=== PATIENT | female | born 2000 | race Caucasian/White ===

== ENCOUNTER → 2019-08-29 11:19 | Outpatient (CLI) | payer MEDICAID ==
[~2019-08-29 11:19] MED LIST: AUGMENTIN 875-11 TAB PO; FLAGYL500 MG PO; HYDROCODON-ACE1 EA10 PO; IBUPROFEN600 MG PO; PRENAVITE1 TAB PO
[2019-09-22 05:49] VITALS: BMI 31.6
== END | disposition home or self-care (01) ==
LOC: D.LDO 11:19
PROVIDERS: ATTEND Obstetrics & Gynecology
DX: O24.419 Gestational diabetes mellitus in pregnancy, unspecified control (principal); Z3A.00 Weeks of gestation of pregnancy not specified

== ENCOUNTER 2019-09-21 12:00 | Inpatient (IN) | payer MEDICAID ==
[~2019-09-21] VITALS: Ht 154.9 cm; Wt 75.9 kg
[2019-09-22] VITALS (12 sets, daily range): BP systolic 104–128; BP diastolic 61–83; Ht 154.9 cm; Wt 75.9 kg
[2019-09-22 06:10] LABS: HEMATOCRIT 36.4 % (36.0-48.0); HEMOGLOBIN 11.8 g/dL (12-16); MCH 29.3 pg (26.0-34.0); MCHC 32.4 g/dL (31.0-37.0); MCV 90.3 fL (80.0-100.0); MEAN PLATELET VOLUME 9.8 fL (7.4-10.4); RBC 4.03 10x6/uL (4.00-5.40); RDW 13.3 % (11.5-14.5); WBC 10.8 10x3/uL (4.8-10.8)
--- NOTE | 2019-09-22 06:32 | NUR ---
DR DENTON NOTIFIED AND REVIEWED PT's BEHAVIOR AND ASSESSMENT RESULTS. PT IS A LOW RISK PER DR DENTON. DR DENTON STATED TO GIVE RESOURCES TO PT AT TIME OF DISCHARGE. NO FURTHER ORDERS AT TIS TIME. RESOURCES REVIEWED WITH PT AND SHE VERBALIZED UNDERSTANDING.
--- NOTE | 2019-09-22 08:14 | NUR ---
BABY GIRL [id number] PLACENTA [id number]
[2019-09-22 08:33] LABS: APPEARANCE CLEAR (CLEAR); BILIRUBIN NEGATIVE (NEGATIVE); COLOR YELLOW (YELLOW); GLUCOSE NEGATIVE (NEGATIVE); KETONE NEGATIVE (NEGATIVE); NITRITE NEGATIVE (NEGATIVE); PROTEIN NEGATIVE (NEGATIVE); SPECIFIC GRAVITY 1.015 (1.005-1.020); UROBILINOGEN NORMAL (NORMAL)
[2019-09-22 08:34] LABS: BACTERIA MODERATE /hpf (NEGATIVE); EPITHELIAL CELLS 0-5 /hpf (0-5); MUCUS <1+ /lpf (NONE SEEN); RED CELLS - URINE RARE /hpf (0-5); WHITE CELLS - URINE 0-5 /hpf (NEGATIVE)
--- NOTE | 2019-09-22 09:24 | NUR ---
RECEIVED PT FROM RECOVERY ROOM VIA BED. ALERT AND ORIENTED. SCD'S PLACED ON PUMP AND FUNCTIONING BILATERALLY, ICE PACK OVER INCISION, IV NS WITH 20 UNITS PITOCIN PLACED ON ALARIS PUMP AT 125 ML/HR. U/1 FIRM, KATALINA-PAD CLEAN, RAYMUNDO DRAINING CLEAR YELLOW URINE. LUNGS CLEAR, ACTIVE BS, INSTRUCTED ON USE OF INCENTIVE SPIROMETER, USED X 3. SIDE RAILS UP X 2, CALL LIGHT IN REACH. IN NURSERY.
--- NOTE | 2019-09-22 09:30 | NUR ---
SHIFT ASSESSMENT COMPLETED, DILAUDID POLISHING WHEEL REPAIRER INITIATED. INSTRUCTED PT ON USE OF POLISHING WHEEL REPAIRER AND THAT SHE WILL BE THE ONLY PERSON WHO WILL PUSH CONTROLLER BUTTON AND EXPLAINED REASON. VERBALIZED UNDERSTANDING. U/1 FIRM MIDLINE, RUBRA SMALL. SIDE RAILS UP X 2, CALL LIGHT IN REACH.
--- NOTE | 2019-09-22 09:34 | NUR ---
FUNDUS IS FIRM, MIDLINE. 2U. KATALINA PAD IN PLACE. MODERATE LOCHIA NOTED. NO CLOTS PRESENT. WILL CONTINUE TO MONITOR. ICE PACK APPLIED TO INCISION SITE IN PACU.
--- NOTE | 2019-09-22 09:50 | NUR ---
U/2 FIRM MIDLINE, RUBRA SMALL TO MOD, TWO CLEAN KATALINA-PADS PLACED, HOLDING IN ARMS. 3/10 INCISIONAL CRAMPING. VISITORS IN ROOM, SIDE RAILS UP X 2, CALL LIGHT IN REACH. RAYMUNDO DRAINING CLEAR YELLOW URINE. ICE WATER AT BEDSIDE. INCENTIVE SPIROMETER USED X 3 WITH WEAK COUGH. LAUNDRY WASHER CONTROLLER IN REACH.
--- NOTE | 2019-09-22 10:05 | NUR ---
U/2 FIRM MIDLINE, RUBRA SMALL. SIDERAILS UP X 2, VISITOR HOLDING . 3/10 INCISIONAL CRAMPING, USING [employer] TECHNICAL MANAGER PRN.
--- NOTE | 2019-09-22 10:34 | NUR ---
U/2 FIRM MIDLINE RUBRA SCANT. INCENTIVE SPIROMETER USED X 3, POSITIONED TO RIGHT SIDE, ICE PACK IN PLACE. SIDE RAILS UP X 2, CALL LIGHT IN REACH. 325 ML URINE EMPTIED FROM UROMETER. SCD'S WORKING BILATERALLY, ABLE TO MOVE LE WITH SLIGHT BENDING OF KNEES. SAYS SHE STILL FEELS NUMB.
--- NOTE | 2019-09-22 11:45 | NUR ---
INFANT IN ROOM, U/2 FIRM, DONOVAN MEI, 3/10 CRAMPING, USING TRAVELING REPRESENTATIVE PRN. NO DISTRESS NOTED. DISCUSSED CLEAR LIQUID DIET, DOES NOT DESIRE ANYTHING AT THIS TIME. SIPPING ON WATER. SIDE RAILS X2 REMAIN UP. CALL LIGHT IN REACH. TO CALL IF ANYTHING IS NEEDED. VISITOR X 1 IN ROOM.
[2019-09-22 12:55] LABS: BASOPHILS 0.1 % (0-2); EOSINOPHILS 0.1 % (0-7); HEMATOCRIT 33.6 % (36.0-48.0); IMMATURE GRANULOCYTES 0.5 % (0-5); LYMPHOCYTES 11.5 % (15-50); MCH 29.4 pg (26.0-34.0); MCHC 32.7 g/dL (31.0-37.0); MCV 89.8 fL (80.0-100.0); MEAN PLATELET VOLUME 9.8 fL (7.4-10.4); MONOCYTES 6.9 % (2-11); NEUTROPHILS 80.9 % (40-80); PLATELET COUNT 273 10x3/uL (130-400); RBC 3.74 10x6/uL (4.00-5.40); RDW 13.2 % (11.5-14.5)
--- NOTE | 2019-09-22 13:00 | NUR ---
POSITIONED FROM RIGHT SIDE TO LEFT SIDE, CLEAN CHUX UNDER BUTTOCKS, RUBRA SMALL TO MOD, CLEAN KATALINA-PADS X 2 PLACED. RAYMUNDO DRAINING WITH TOTAL OUTPUT 1400ML. SCDS FUNCTIONING BILATERALLY. FRESH ICE PACK PLACED OVER GOWN OVER INCISION. IV PATENT, WARDROBE CUSTODIAN CONTROLLER AND CALL LIGHT IN REACH. VISITORS AND IN ROOM. 3 11/02/09 CRAMPING. TO CALL IF ANYTHING IS NEEDED. CLEAR LIQUID DIET AT BEDSIDE.
[2019-09-22 13:01] LABS: WBC 14.9 10x3/uL (4.8-10.8)
--- NOTE | 2019-09-22 14:46 | NUR ---
DESIRED TO MOVE SELF IN BED. REPOSITIONED TO SEMI-FOWLERS POSITION IN PREPARATION TO HOLD INFANT. RUBRA SMALL, CLEAN KATALINA-PAD IN PLACE. REQUESTED JELLO WHICH WAS GIVEN ALONG WITH FRESH WATER. INCENTIVE SPIROMETER USED X 3, SIDE RAILS UP X 2, CALL LIGHT IN REACH. RAYMUNDO DRAINING CLEAR YELLOW URINE.
--- NOTE | 2019-09-22 16:18 | NUR ---
SITTING UP IN BED TALKING TO FOB. NO REQUESTS. RUBRA SCANT, CLEAN PADS X 2 PLACED. RAYMUNDO DRAINING, SCDS FUNCTIONING. 2/10 INCISIONAL CRAMPING. DENIES NEEDING ANYTHING AT THIS TIME. SIDE RAILS UP X 2, CALL LIGHT IN REACH.
--- NOTE | 2019-09-22 17:36 | NUR ---
POSITIONED SELF TO LEFT SIDE. U/2 FIRM, SLIGHT DEVIATION TO RIGHT. RUBRA SCANT, RAYMUNDO DRAINING CLEAR YELLOW URINE. IV SITE RIGHT HAND PATENT. 2-3/10 INCISIONAL CRAMPING. SAYS SHE TOOK APPROX 30 MIN NAP. IN NURSERY. VISITORS IN ROOM. SIDE RAILS UP X 2, CALL LIGHT IN REACH. TO CALL IF ANYTHING IS NEEDED. SAYS SHE IS NOT REALLY HUNGRY. CLEAR LIQUID DIET AT BEDSIDE.
--- NOTE | 2019-09-22 19:03 | NUR ---
BEDSIDE REPORT RECEIVED FROM OFFGOING NURSE. PT RESTING IN BED HOLDING INFANT. DENIES ANY COMPLAINTS OR NEEDS AT THIS TIME.
--- NOTE | 2019-09-22 19:15 | NUR ---
PT RESTING IN BED HOLDING . ASSESSMENT COMPLETE PER FLOWSHEET. VSS. DILAUDID POULTRY FARM SUPERVISOR IN USE. PT RATES HER PAIN AT 2/10 AT THIS TIME. BBS CLEAR. ACTIVE BS X4 QUADRANTS. LOW TRANSVERSE ABD INCISION C/D/I WITH DERMABOND. FUNDUS FIRM 2 BELOW UMBILICUS. SMALL AMOUNT OF LOCHIA NOTED ON PERIPAD. FC PATENT AND DRAINING TO GRAVITY WITH 400ML OF YELLOW URINE OBTAINED FROM RAYMUNDO BAG. FC SECURED TO LEG WITH CATHSECURE. RAYMUNDO AND PERICARE DONE. NEW PERIPAD PLACED. NO BLE NOTED. SCD ON AND WORKING PROPERLY. GOWN CHANGED. POC DISCUSSED INCLUDING PAIN MANAGEMENT, INCISION CARE, S/S OF INFECTION, FC, TCDB, SCDS, AND FUNDAL CHECKS. QUESTIONS ANSWERED. PT INSTRUCTED TO NOTIFY NURSE WITH ANY PROBLEMS, NEEDS, OR CONCERNS. VERBALIZED UNDERSTANDING. BED IN LOW POSITION. SR UP X2. CALL LIGHT, POULTRY FARM SUPERVISOR BUTTON, AND TELEPHONE WITHIN PTS REACH.
--- NOTE | 2019-09-22 20:34 | NUR ---
THIS RN HAS REVIEWED THIS PT AND CONCURS WITH THE ASSESSMENT CHARTED BY Cristela GRAFF RN.
--- NOTE | 2019-09-22 20:45 | NUR ---
FC DC'D AT THIS TIME WITH 250ML OF YELLOW URINE OBTAINED FROM RAYMUNDO BAG. PERICARE DONE WITH A SMALL AMOUNT OF LOCHIA NOTED ON PERIPAD. PERIPAD AND PANTIES PLACED. PT DENIES PASSING FLATUS AT THIS TIME. PT INSTRUCTED ON VOID CHECKS AND TO NOTIFY NURSE FOR ASSISTANCE WHEN GETTING UP TO THE BATHROOM. SCDS ON BLE AND WORKING PROPERLY. QUESTIONS ANSWERED. PT INSTRUCTED TO NOTIFY NURSE WITH ANY PROBLEMS, NEEDS, OR CONCERNS. VERBALIZED UNDERSTANDING. BED IN LOW POSITION. SR UP X2. CALL LIGHT WITHIN PTS REACH.
--- NOTE | 2019-09-22 20:56 | NUR ---
NORCO 5 X1 TABLET GIVEN PER MD ORDER FOR C/O HIP PAIN OF 10. PT INSTRUCTED TO NOTIFY NURSE IF MEDICATION NOT EFFECTIVE OR WITH ANY OTHER PROBLEMS NEEDS, OR CONCERNS. VERBALIZED UNDERSTANDING.
--- NOTE | 2019-09-22 21:19 | NUR ---
INFANT TO ROOM PER PT AND SIGNIFICANT OTHER REQUEST. ID BANDS MATCHED. DENIES NEEDS. INFANT PLACED IN PT ARMS. SIGNIFICANT OTHER SITTING ON COUCH AT BEDSIDE. BED IN LOW POSITION WITH SRUPX2. CALL LIGHT AND PHONE WITHIN REACH. WILL CONTINUE TO MONITOR.
--- NOTE | 2019-09-22 21:42 | NUR ---
PT RESTING IN BED HOLDING . PT DENIES ANY C/O PAIN OR ANY NEEDS AT THIS TIME. INSTRUCTED PT TO NOTIFY NURSE WITH ANY PROBLEMS, NEEDS, OR CONCERNS. VERBALIZED UNDERSTANDING. BED IN LOW POSITION. SR UP X2. CALL LIGHT WITHIN PTS REACH.
--- NOTE | 2019-09-22 22:20 | NUR ---
PT SITTING UP IN BED WITH . DENIES ANY NEEDS AT THIS TIME. INSTRUCTED PT TO NOTIFY NURSE WITH ANY PROBLEMS, NEEDS, OR CONCERNS. VERBALIZED UNDERSTANDING.
--- NOTE | 2019-09-22 23:59 | NUR ---
PT RESTING IN BED FEEDING . VSS. PT DENIES ANY COMPLAINTS AT THIS TIME. WATER PITCHER FILLED. FRESH ICE PACK PLACED TO [employer] SCDS ON AND WORKING PROPERLY. INSTRUCTED PT TO NOTIFY NURSE WITH ANY PROBLEMS, NEEDS, OR CONCERNS. VERBALIZED UNDERSTANDING. BED IN LOW POSITION. SR UP X2. CALL LIGHT WITHIN PTS REACH.
--- NOTE | 2019-09-23 00:49 | NUR ---
PT RESTING IN BED WITH EYES CLOSED AND INFANT IN ARMS. PT AWAKENED AND INFANT PLACED IN OPEN CRIB AT PTS BEDSIDE. PT ASKED ABOUT INFANTS LAST FEEDING. SHE STATED THAT SHE ATTEMPTED TO FEED INFANT BETWEEN [phone]. BOTTLE COLLECTED. TOOK IN APPROX. 10ML OF INFANT FORMULA. BABY BOTTLE TAKEN TO NBN AND GIVEN TO NB NURSE DANA SANON. INFORMED HER OF TIMES THAT PT STATED WHEN STARTED EATING ([id number]). TALITA STATED SHE WILL HAVE TO DO ANOTHER DSTICK WHEN IT IS TIME. WILL CONTINUE TO MONITOR FEEDINGS.
--- NOTE | 2019-09-23 02:15 | NUR ---
PT UP TO BATHROOM WITH ASSISTANCE. VOIDED 875ML OF YELLOW URINE. INSTRUCTED ON PERICARE. SMALL AMOUNT OF LOCHIA NOTED ON PERIPAD. PERIPAD CHANGED AT THIS TIME. PT ASSISTED BACK TO BED. FUNDUS FIRM AT 2 BELOW UMBILICUS. LOW TRANSVERSE ABD INC C/D/I WITH DERMABOND. SCDS ON AND WORKING PROPERLY. PT RATES HER PAIN AT 2/10. DENIES ANY COMPLAINTS OR NEEDS. INSTRUCTED PT TO NOTIFY NURSE WITH ANY PROBLEMS, NEEDS, OR CONCERNS. VERBALIZED UNDERSTANDING. BED IN LOW POSITION. SR UP X2. CALL LIGHT WITHIN PTS REACH.
--- NOTE | 2019-09-23 02:25 | NUR ---
INFANT BACK TO NBN IN OPEN CRIB. INFORMED NB NURSE DANA SANON, THAT PT REPORTS SPIT UP "A LITTLE BIT." AND HAD A WET/DIRTY DIAPER AT AROUND 0000.
--- NOTE | 2019-09-23 02:35 | NUR ---
INFANT BACK TO PTS ROOM VIA OPEN CRIB FROM NBN. BABY BANDS CHECKED AND VERIFIED WITH MOM. ASSISTED PT WITH FEEDING INFANT. INFANT DID SUCK ON NIPPLE A COUPLE AND SWALLOWED FORMULA, BUT THEN BECAME UNINTERESTED AFTER. RN AT BEDSIDE AND UNSWADDLED INFANT AND ATTEMPTED TO FEED AGAIN, BUT INFNAT REMAINED UNINTERESTED. RESWADDLED AND GIVEN BACK TO PT. INFORMED PT THAT I WILL SPEAK WITH NB NURSE WITH THIS INFORMATION. PT VERBALIED UNDERSTANDING.
--- NOTE | 2019-09-23 02:50 | NUR ---
INFORMED NB NURSE TALITA, RN, THAT PT ALONG WITH THIS RN ATTEMPTED TO FEED AND THAT THE IS NOT REALLY INTERESTED IN EATING. TALITA STATED TO PLACE THE BOTTLE IN THE INFANTS MOUTH AND PLACE HAND UNDER INFANTS CHIN TO HELP ENCOURAGED TO EAT. I WILL INFORM PT WITH THIS INFORMATION.
--- NOTE | 2019-09-23 02:55 | NUR ---
INFORMED PT THAT NB NURSE DANA SANON, STATED TO PLACE BOTTLE IN INFANTS MOUTH AND FOR PT TO PLACE HER HAND UNDER 'S CHIN TO ASSIST INFANT WITH FEEDING PT. PT VERBALIZED UNDERSTANDING INSTRUCTED PT TO NOTIFY NURSE WITH ANY PROBLEMS, NEEDS, OR CONCERNS. VERBALIZED UNDERSTANDING. BED IN LOW POSITION. SR UP X2. CALL LIGHT WITHIN PTS REACH.
--- NOTE | 2019-09-23 03:18 | NUR ---
PT RESTING IN BED HOLDING INFANT. INFANT ATE APPROX. 20ML OF FORMULA. PT DENIES ANY COMPLAINTS OR NEEDS. INSTRUCTED PT TO NOTIFY NURSE WITH ANY PROBLEMS, NEEDS, OR CONCERNS. VERBALIZED UNDERSTANDING.
--- NOTE | 2019-09-23 04:10 | NUR ---
PT. LYING ON RT SIDE WITH EYES CLOSED. RESPIRATIONS UNLABORED. FOB ASLEEP ON SOFA WITH LYING BETWEEN HIS ARM AND BODY. FOB AWAKENED AND ASKED IF THIS NURSE COULD PUT INFANT IN OPEN CRIB. FOB AGREEABLE. ASKED IF HE DESIRED TO RETURN TO NBN AND FOB STATES THAT "THERE IS NO NEED". CRIB WITHIN VIEW OF FOB. NBN INFORMED OF AMT. OF LAST FEED FOR .
[2019-09-23 05:50] VITALS: BP 117/71
--- NOTE | 2019-09-23 05:50 | NUR ---
PT ASSISTED UP TO BATHROOM AND VOIDED 1000ML OF YELLOW URINE. SMALL AMOUNT OF LOCHIA NOTED ON PERIPAD. PERIPAD CHANGED. PT ASSISTED BACK TO BED AND GOWN, TOP SHEET AND BLANKET CHANGED. NB NURSE IN ROOM AND HANDED TO MOM FOR FEEDING. PT REQUESTING PAIN MEDICATION. WILL PROVIDED. BED IN LOW POSITION. SR UP X2. CALL LIGHT IN LOW POSITION.
--- NOTE | 2019-09-23 06:07 | NUR ---
NORCO 5 AND MOTRIN 600MG X1 TABLET GIVEN FOR C/O INCISIONAL AND HIP PAIN. FRESH ICE PACK PLACED TO ABD INCISION. WATER PITCHER FILLED. WOJCIECH CRACKERS PROVIDED. NO OTHER REQUEST MADE. INSTRUCTED PT TO NOTIFY NURSE WITH ANY PROBLEMS, NEEDS, OR CONCERNS. VERBALIZED UNDERSTANDING. BED IN LOW POSITION. SR UP X2. CALL LIGHT WITHIN PTS REACH.
[2019-09-23 06:20] LABS: BASOPHILS 0.1 % (0-2); EOSINOPHILS 0.4 % (0-7); HEMATOCRIT 33.3 % (36.0-48.0); HEMOGLOBIN 10.6 g/dL (12-16); IMMATURE GRANULOCYTES 0.7 % (0-5); MCH 29.2 pg (26.0-34.0); MCHC 31.8 g/dL (31.0-37.0); MCV 91.7 fL (80.0-100.0); MEAN PLATELET VOLUME 9.6 fL (7.4-10.4); MONOCYTES 6.8 % (2-11); PLATELET COUNT 259 10x3/uL (130-400); RBC 3.63 10x6/uL (4.00-5.40); RDW 13.5 % (11.5-14.5); WBC 13.2 10x3/uL (4.8-10.8)
--- NOTE | 2019-09-23 07:00 | NUR ---
ASSUMED CARE OF THIS PT AFTER RECEIVING REPORT. SITTING UP IN BED HOLDING IN ARMS. FOB SLEEPING ON COUCH. 11/10 INCISIONAL DISCOMFORT. ASKED WHEN SALINE LOCK CAN BE REMOVED, SAYS IT'S BOTHERING HER. DENIES NEEDING ANYTHING. WILL COMPLETE SHIFT ASSESSMENT AFTER BREAKFAST.
[2019-09-23 07:12] LABS: RAPID PLASMA REAGIN Non Reactive (Non Reactive)
--- NOTE | 2019-09-23 07:55 | NUR ---
INFANT TO NURSERY, SHIFT ASSESSMENT COMPLETED. HAS BEEN BOTTLEFEEDING. REGULAR DIET AT BEDSIDE. FOB AWAKE IN ROOM. SIDERAILS UP. CALL LIGHT IN REACH. DESIRES TO HAVE SCD'S OFF AT THIS TIME. DENIES NEEDING TO VOID AT THIS TIME, INSTRUCTED TO CALL WHEN READY TO GET OOB. VERBALIZED UNDERSTANDING. DISCUSSED POC TO INCLUDE SHOWER, LINEN CHANGE AND AMBULATION IN CROSS.
[2019-09-23 07:57] VITALS: BP 98/57
--- NOTE | 2019-09-23 08:55 | NUR ---
INFANT RETURNED TO MOTHER'S ROOM. VERIFIED ID INFORMATION WITH PT INFORMATION. INFORMED PT THAT PER PERNELL NURSERY RN, NEEDS TO EAT 35-40 ML EVERY 3-4 HOURS. TO CALL IF NEEDING ASSISTANCE. FOB IN ROOM. 11/10 INCISIONAL DISCOMFORT, REMINDED NOT TO SIT IN BED WITH LEGS BENT AT KNEES TO PREVENT BLOOD CLOT FORMATION. SIDE RAILS UP X 2, CALL LIGHT IN REACH. FOB IN ROOM. GETTING READY TO BOTTLE FEED .
--- NOTE | 2019-09-23 10:00 | NUR ---
DR REAL VISITED. STANDING AT BEDSIDE GETTING READY TO TAKE SHOWER.
--- NOTE | 2019-09-23 10:30 | NUR ---
SHOWER COMPLETED. WAS INSTRUCTED ON INCISION CARE, HEBICLEANSE USED AT SITE. CLEAN GOWN, KATALINA-PANTS AND PADS GIVEN TO PATIENT. SELF-CARE. AMBULATED AROUND L&D TO NURSERY AND BACK TO ROOM WITHOUT DIFFICULTY. FOB IN ROOM WITH INFANT. RETURNED TO ROOM TOLERATED WELL. COMPLETE LINEN CHANGE WAS DONE. TO CALL IF ANYTHING IS NEEDED. VERBALIZED UNDERSTANDING.
--- NOTE | 2019-09-23 10:52 | NUR ---
PT C/O INCISIONAL PAIN, REQUESTS PRN MED ORDERED; SAME PROVIDED WITH SIPS OF WATER. NAD NOTED, RESP EVEN AND UNLABORED, NO OTHER NEEDS VOICED AT THIS TIME, CONTINUE TO MONITOR.
--- NOTE | 2019-09-23 10:52 | NUR ---
pt continues to c/o pain rated 7/10 on numeric pain scale on pain reassessment, norco 5-325 mg po given with sips of water per md orders, relayed plan of care and use of pain medications, reviewed need to strain urine, encourage po fluid intake. pt states understanding. u/s tech to pt room at this time for ordered u/s. will monitor.
[2019-09-23 12:12] VITALS: BP 116/64
--- NOTE | 2019-09-23 12:13 | NUR ---
SITTING UP IN BED WATCHING TV AND HOLDING INFANT. FOB ON COUCH. WAITING FOR LUNCH. DENIES NEEDING ANYTHING. INCISIONAL PAIN HAS IMPROVED 11/10. SIDE RAILS UP X 2, CALL LIGHT IN REACH. TO CALL IF NEEDING ANYTHING.
--- NOTE | 2019-09-23 13:52 | NUR ---
SITTING UP IN BED HOLDING . DENIES NEEDING ANYTHING. PLANS TO WALK IN CROSS LATER. FOB IN ROOM. 11/10 INCISIONAL DISCOMFORT. NO REQUESTS. TO CALL IF ANYTHING IS NEEDED.
--- NOTE | 2019-09-23 15:05 | NUR ---
SITTING UP IN BED EATING HAMBURGER TALKING TO VISITORS. INFANT IN ROOM. DENIES NEEDING ANYTHING AT THIS TIME. TO CALL IF ANYTHING IS NEEDED.
[2019-09-23 15:38] VITALS: BP 116/68
--- NOTE | 2019-09-23 15:41 | NUR ---
REQUESTED PAIN MEDICATION FOR 4/10 INCISIONAL PULLING, TEARING. SAYS SHE GOT UP TO BATHROOM AND NOTED INCREASE PAIN THAT "JUST STARTED GETTING WORSE". NORCO 5 MG GIVEN PO FOR RELIEF. WILL GIVE MOTRIN IN ADDITION TO NORCO IF NEEDED. SAYS SHE FEELS LIKE LEFT HIP IS SWOLLEN. ENCOURAGED FREQUENT MOVEMENT AND OOB AMBULATING, DISCUSSED FLUCTUATIONS IN FLUID RETENTION PP AND WHEN LAYING IN BED. ALSO DISCUSSED C/S PROCESS AND SOMETIMES PT WILL C/O SWELLING OR INCREASE PAIN ON ONE SIDE OR THE OTHER. WILL MONITOR. PLANS TO AMBULATE WHEN PAIN MEDICATION EFFECTIVE. PULSE NOTED TO FLUCTUATE BETWEEN 104-117 WITH PULSE OX. WILL RECHECK WHEN PAIN RELIEF OBTAINED. DONOVAN SERRICARDA SMALL, INCISION INTACT WITHOUT ERRYTHEMA OR DRAINAGE. SAYS SHE HAS PASSED GAS. VISITORS AND INFANT IN ROOM. SIDERAILS UP X 2, CALL LIGHT IN REACH.
--- NOTE | 2019-09-23 16:43 | NUR ---
LAYING IN BED BOTTLE FEEDING . SAYS HER PAIN IS STILL ABOUT 4-5/10 LOW ABDOMEN, UPPER THIGHS, GROIN AREA. SAYS SHE AMBULATED TO NURSERY AND BACK TO ROOM SINCE NORCO WAS GIVEN. ENCOURAGED REST AT THIS TIME. MOTRIN 600 MG GIVEN TO PROMOTE RELIEF. DISCUSSED FUTURE PAIN MANAGEMENT OPTIONS, INCLUDING NORCO 10 MG THIS PM IF NEEDED. VOIDING WITHOUT DIFFICULY, PASSING GAS, DISCUSSED RELIEF MEASURE FOR GAS IF HAVING SYMPTOMS. VERBALIZED UNDERSTANDING. FOB IN ROOM. REGULAR DIET AT BEDSIDE, SIDERAILS UP, CALL LIGHT IN REACH. PAIN ABOVE DESCRIBED THROBBING, BURNING, PULLING.
--- NOTE | 2019-09-23 17:41 | NUR ---
LAYING ON LEFT SIDE HOLDING IN ARMS. SAYS HER PAIN IS BETTER 2/10. SAYS SHE THINKS IT WAS GAS BECAUSE SHE COULD FELL IT "MOVING DOWN" WHEN LAYING ON SIDE. DID NOT PASS GAS AT THIS TIME BUT FEELING BETTER. SIDE RAILS UP X2, CALL LIGHT IN REACH. NO REQUESTS, REMINDED NOT TO FALL ASLEEP WITH INFANT IN ARMS. FOB IN ROOM.
--- NOTE | 2019-09-23 17:42 | NUR ---
RADIAL PULSE 98.
[2019-09-23 19:09] VITALS: BP 117/64
--- NOTE | 2019-09-23 19:09 | NUR ---
LYING ON LT SIDE WITH HOB AT 30 DEGREES. ASLEEP LYING IN BED WITH PATIENT. AWAKE AND ORIENTED. STATES PAIN SCORE IS A 1 OF 10 . BREATH SOUNDS CLEAR AND BOWEL SOUNDS ACTIVE. REPORTS THAT SHE HAS PASSED SOME GAS. ABD. SLIGHTLY DISTENDED BUT SOFT TO TOUCH. ABD INCISION WITHOUT REDNESS NOR EDEMA. DENIES ANY PAIN IN LOWER EXTREMITIES. FOB SITTING ON SOFA. PT. STATES THAT SHE HAD JUST EATEN AND DECLINES OFFERS OF FURTHER DRINKS OR NOURISHMENTS.
--- NOTE | 2019-09-23 20:15 | NUR ---
WALKING IN HALLWAY WITH FOB AND PUSHING IN OPEN CRIB. WALKED TO ICE MACHINE AND BACK TO ROOM. GAIT STEADY. DENIES ANY NEEDS.
--- NOTE | 2019-09-23 21:08 | NUR ---
LYING ON LT SIDE WITH HOB AT 30 DEGREES. IN BED WITH PT. FOB LYING ON SOFA AND LOOKING AT PHONE. PT CHEERFUL AND DENIES ANY NEEDS AT THIS TIME.
[2019-09-23 23:05] VITALS: BP 111/63
--- NOTE | 2019-09-23 23:05 | NUR ---
PT. LYING IN BED LOOKING AT PHONE. FOB SITTING ON SIDE OF BED FEEDING . DENIES ANY NEED. OFFERED NOUISHMENTS BUT PT. STATES SHE ISN'T HUNGRY. INFORMED PT. THAT WHENEVER SHE WAS READY TO SLEEP FOR THE NIGHT TO LET THIS NURSE KNOW AND HER SCDS WOULD BE REAPPLIED. PT. STATED UNDERSTANDING AND RESPONDED THAT SHE WOULD CALL.
[2019-09-24] MEDS ORDERED: PRENAVITE1 TAB PO (00:42)
--- NOTE | 2019-09-24 00:46 | NUR ---
RESTING QUIETLY LAYING ON RT SIDE WITH EYES CLOSED. RESP REGULAR AND UNLABORED, NO S/S OF DISTRESS NOTED. BED IN LOW POSITION WITH SRUPX2. CALL LIGHT AND PHONE WITHIN REACH. WILL CONTINUE TO MONITOR.
--- NOTE | 2019-09-24 01:02 | NUR ---
HOLDING IN ARMS. DENIES NEEDS AT THIS TIME. SIGNIFICANT OTHER RESTING ON COUCH AT BEDSIDE. BED IN LOW POSITION WITH SRUP X2. CALL LIGHT AND PHONE WITHIN REACH. WILL CONTINUE TO MONITOR.
--- NOTE | 2019-09-24 02:51 | NUR ---
LYING ON LT SIDE WITH EYES CLOSED. RESPIRATIONS UNLABORED.
[2019-09-24 07:08] VITALS: BP 117/64
--- NOTE | 2019-09-24 07:15 | NUR ---
SHIFT ASSESSMENT COMPLETED. MOTRIN 600 MG GIVEN PO FOR RELIEF OF LEFT SIDED INCISION PULLING/TEARING SENSATION. FOB IN ROOM HOLDING INFANT. DISCUSSED BREASTCARE AND PT PLANS TO POSSIBLE USE BREAST PUMP AT HOME. DISCUSSED MILK PRODUCTION, ENGORGEMENT AND WAYS TO AVOID IF ULTIMATELY NOT PLANNING TO BREAST FEED OR BOTTLEFEED BREAST MILK. ALSO REMINDED NOT TO SLEEP WITH IN BED AND DANGERS. UP TO BATHROOM TO VOID, FRESH WATER GIVEN, NO ADDITIONAL REQUESTS. ENCOURAGED TO AMBULATE FREQUENTLY AND METHODS TO CONTINUE TO PROMOTE PASSING FLATUS.
--- NOTE | 2019-09-24 07:48 | NUR ---
A+ RUBELLA IMMUNE, GBS NEG, FLU AND TDAP VACCINE NOT DOCUMENTED IN OUTPT RECORDED. ANTICIPATE DC HOME TODAY.
--- NOTE | 2019-09-24 08:05 | NUR ---
DECLINES FLU VACCINE. UNABLE TO ACCESS [place] IMMUNIZATION RECORDS. PT UNSURE IF SHE HAS RECEIVED TDAP IN LAST 10 YEARS. SAYS SHE WILL CHECK WITH HER MOTHER. VERBAL AND WRITTEN INFORMATION GIVEN ON TDAP AT THIS TIME. SAYS HER PAIN IS BETTER, NOW 1/10. SITTING IN BED HOLDING IN ARMS.
--- NOTE | 2019-09-24 09:17 | NUR ---
DR REAL VISITED PATIENT. V.O. RECEIVED THAT PATIENT CAN BE DC'D HOME.
[2019-09-24] MEDS ORDERED: AUGMENTIN 875-11 TAB PO (09:43)
[2019-09-24] MEDS ORDERED: FLAGYL500 MG PO (09:43)
[2019-09-24] MEDS ORDERED: HYDROCODON-ACE1 EA10 PO (10:20)
[2019-09-24] MEDS ORDERED: IBUPROFEN600 MG PO (10:20)
--- NOTE | 2019-09-24 10:25 | NUR ---
GETTING READY TO TAKE A NAP. DECLINES TDAP, PLANS TO CHECK WITH HEALTH DEPARTMENT SHE THINKS SHE ALREADY RECEIVED. DISCUSSED F/U APPOINTMENT IN 2 WKS VS THE SINCE SHE DOES NOT HAVE REJI. VERBALIZED UNDERSTANDING. FOB AND IN ROOM, SIDE RAILS UP X 2, CALL LIGHT IN REACH. ANTICIPATE DC HOME TODAY, STATES "IF BABY HAS TWO MORE GOOD FEEDINGS".
--- NOTE | 2019-09-24 11:21 | NUR ---
UP IN BATHROOM. DENIES NEEDING ANYTHING. DENIES NEEDING ANYTHING FOR PAIN. FOB PREPARING KATALNIA-BOTTLE WITH WARM WATER FOR PT USE. IN CRIB, EYES CLOSED, COLOR PINK. TO CALL IF ANYTHING IS NEEDED. PT IS UP AD MUNA.
--- NOTE | 2019-09-24 12:15 | NUR ---
PT HAD QUESTIONS REGARDING INFANT SSN AND CARE OF UMBILICAL CORD. INSTRUCTED ON USE OF ALCOHOL TO CLEAN UMBILICAL CORD AND AROUND UMBILICUS. ALSO INFORMED THAT REGISTRATION WILL SUBMIT INFORMATION FOR SSN ONCE PT COMPLETES PAPERWORK. ALSO SUGGESTED TO HOLD AGAINST SHOULDER WHILE BURPING VS SITTING INFANT ON THIGH AND BENDING FORWARD THIS INCREASES ABDOMINAL PRESSURE AND PUSHES AGAINST INFANT STOMACH THUS POSSIBLY CAUSING REGURGITATION. PT SHIFT POSITION AT THIS TIME. FOB IN ROOM, SIDE RAILS UP X 2, CALL LIGHT IN REACH. TO CALL IF ANYTHING ELSE IS NEEDED.
--- NOTE | 2019-09-24 13:36 | NUR ---
SITTING UP IN BED HOLDING . SAYS SHE HAS ONE MORE FEEDING OF . IF GOOD THEN ANTICIPATE DC HOME. DENIES NEEDING ANYTHING. SIDERAILS UP X 2, CALL LIGHT IN REACH. FOB IN ROOM. AT 50% LUNCH.
--- NOTE | 2019-09-24 15:19 | NUR ---
DRESSING AND READY TO GO. CURRENTLY SITTING IN BED DRESSING . HAS DC ORDER. WILL PROVIDE MATERNAL DC INSTRUCTIONS WHEN SHE FINISHES GETTING READY FOR DC.
--- NOTE | 2019-09-24 15:52 | NUR ---
DC TEACHING COMPLETED TO INCLUDE POST OP CARE, PP DEPRESSION, S&S INFECTION, DANGER SIGNS, MEDICATION ADMINISTRATION, BREAST CARE AND FOLLOW-UP. VERBAL AND WRITTEN INFORMATION GIVEN TO PATIENT. NO SPECIFIC QUESTIONS ASKED AT THIS TIME. RATES PAIN 1/10, DENIES NEEDING ANYTHING. WILL DC HOME WHEN IS DISCHARGED. FOB IN ROOM.
--- NOTE | 2019-09-24 16:31 | NUR ---
DC'D VIA WHEELCHAIR TO CAR. ALL BELONGINGS REMOVED FROM ROOM, HAS DC INSTRUCTIONS AND PRESCRIPTIONS. IN CARSEAT. FOB DRIVING.
== END 2019-09-24 16:31 | disposition home or self-care (01) | DRG 788 ==
LOC: D.SDCHOLD 12:00 → D.LD 09-22 05:22
PROVIDERS: ADMIT Obstetrics & Gynecology; ATTEND Obstetrics & Gynecology
PROC: 10D00Z1 Extraction of Products of Conception, Low, Open Approach (ICD-10-PCS; principal; 2019-09-22 07:30)
DX: O75.89 Other specified complications of labor and delivery (principal); Z3A.39 39 weeks gestation of pregnancy; Z37.0 Single live birth; F50.9 Eating disorder, unspecified; O99.344 Other mental disorders complicating childbirth; F32.9 Major depressive disorder, single episode, unspecified

== ENCOUNTER 2021-03-24 11:56 | Outpatient (CLI) | payer OTHER ==
[2019-09-22 05:49] VITALS: BMI 31.6
== END 2021-03-24 19:39 | disposition home or self-care (01) ==
LOC: D.LDO 11:56
PROVIDERS: ATTEND Obstetrics & Gynecology
DX: O26.899 Other specified pregnancy related conditions, unspecified trimester (principal)

== ENCOUNTER 2021-04-07 12:56 | Inpatient (IN) | payer OTHER ==
[2019-09-22 05:49] VITALS: Ht 154.9 cm; Wt 72.6 kg
[~2021-04-07] VITALS: Ht 154.9 cm; Wt 72.6 kg
[2021-04-30 09:39] VITALS: BP 126/75
--- NOTE | 2021-04-30 10:06 | NUR ---
PT TO UNIT FOR REPEAT C/S. 18G PIV STARTED, LABS DRAWN WITH IV AND SENT TO LAB, PRE-OP CHECKLIST COMPLETED. PT PERFORMED OWN HAIR REMOVAL
[2021-04-30 10:38] LABS: HEMATOCRIT 34.8 % (36.0-48.0); HEMOGLOBIN 11.1 g/dL (12-16); MCH 25.7 pg (26.0-34.0); MCHC 31.8 g/dL (31.0-37.0); MCV 80.6 fL (80.0-100.0); MEAN PLATELET VOLUME 8.4 fL (7.4-10.4); RBC 4.33 10x6/uL (4.00-5.40); RDW 14.3 % (11.5-14.5); WBC 11.4 10x3/uL (4.8-10.8)
--- NOTE | 2021-04-30 16:15 | NUR ---
TO PT'S ROOM, ASSESSMENT COMPLETED. FUNDUS FIRM, U/2, SMALL RUBRA LOCHIA, NO CLOTS EXPELLED. PT HAS PERIPADS/TOWELS IN PLACE. ICE PACK PLACED OVER GOWN TO INCISION. ABDOMEN TENDER TO TOUCH, SOFT, NON DISTENDED. 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 PT DENIES N/V, SOB, DIFFICULTY BREATHING, CHEST PAIN, OR DIZZINESS. SCD'S ARE ON. PT DENIES WANTING ANYTHING ELSE, DENIES OTHER NEEDS. RAYMUNDO CATH EMPTIED WITH 600 MLS YELLOW URINE. SIG OTHER AT BEDSIDE HOLDING . SR UP X2, CL/PHONE WITHIN REACH.
--- NOTE | 2021-04-30 18:45 | NUR ---
TO PT'S ROOM, PT IS SITTTING UP IN THE BED, WATCHING TV. PT DENIES N/V, SOB, DIFFICULTY BREATHING, OR CHEST PAIN. FUNDUS FIRM, U/2, SMALL RUBRA LOCHIA, NO CLOTS. PERICARE DONE, PERIPADS CHANGED. ABDOMEN PALPATES SOFT, TENDER TO TOUCH. ICE PACK PLACED OVER GOWN TO INCISION. RAYMUNDO CATH DRAINING YELLOW URINE, 200 MLS EMPTIED. INCENTIVE SPIROMETER, AND COUGHING AND DEEP BREATHING EXERCISES DONE. SRUP X2, CL/PHONE WITHIN REACH. SIG OTHER AT BEDSIDE.
[2021-04-30 20:00] VITALS: BP 119/72
[2021-04-30 20:02] LABS: BASOPHILS 0.3 % (0-2); EOSINOPHILS 0.1 % (0-7); HEMATOCRIT 29.9 % (36.0-48.0); HEMOGLOBIN 9.5 g/dL (12-16); LYMPHOCYTES 14.5 % (15-50); MCH 25.7 pg (26.0-34.0); MCHC 31.9 g/dL (31.0-37.0); MCV 80.6 fL (80.0-100.0); MEAN PLATELET VOLUME 7.5 fL (7.4-10.4); MONOCYTES 5.1 % (2-11); PLATELET COUNT 288 10x3/uL (130-400); RBC 3.71 10x6/uL (4.00-5.40); RDW 14.3 % (11.5-14.5); WBC 13.6 10x3/uL (4.8-10.8)
--- NOTE | 2021-04-30 20:30 | NUR ---
ASSESSMENT COMPLETED. PT HAD A C SECTION TODAY. SHE HAS A WHITE DRESSING OVER HER LTI. NO NEW DRAINAGE NOTED. SHE HAS AN IV AT 125 ML/HR AND A DILAUDID WINDSHIELD INSTALLER PUMP. SHE HAS A IGHT FOREARM PIV. SHE HAS ICE TO THE INCISION. SHE USES HER IS INSTRUCTED. SHE GET THE IS TO 1500 CONSISTANTLY. SHE HAS A RAYMUNDO CATHETER DRAINING YELLOW URINE. SHE STATES SHE HAD A TUBAL ALONG WITH THE REPEAT C SECTION. IS AT THE BEDSIDE.
--- NOTE | 2021-04-30 23:45 | NUR ---
PT CALLED ME TO HER ROOM TO TELL ME THAT SHE REALLY FELT SOME DISCOMFORT FROM HER RAYMUNDO CATHETER. SHE ASKED ME TO LOOK AT IT. I LOOKED AT HER RAYMUNDO WITH A PEN LIGHT AND SAW NO REDNESS OR IRRITATION. SHE SAID THAT MAYBE IT WAS THE WAY SHE WAS SITTING. SHE THEN SAID SHE NEEDED SOME SLEEP AND WANTED TO ASK THE NURSERY NURSE TO TAKE THE BABY. THE BABY WAS TAKEN TO THE NURSERY WITH THE UNDERSTANDING HE WOULD BE REUTENED AROUND 2 AM
[2021-05-01] VITALS: BP 103/78
--- NOTE | 2021-05-01 02:05 | NUR ---
BABY WAS TAKEN BACK TO MOM, WHO ASKED FOR HIM BACK SINCE SHE WASN'T SLEEPING. SHE IS NOW HOLDING THE BABY.
[2021-05-01 04:00] VITALS: BP 119/69
[2021-05-01 07:52] LABS: BASOPHILS 0.5 % (0-2); EOSINOPHILS 0.5 % (0-7); HEMATOCRIT 30.8 % (36.0-48.0); HEMOGLOBIN 9.7 g/dL (12-16); LYMPHOCYTES 15.7 % (15-50); MCH 25.4 pg (26.0-34.0); MCHC 31.5 g/dL (31.0-37.0); MCV 80.7 fL (80.0-100.0); MEAN PLATELET VOLUME 7.6 fL (7.4-10.4); MONOCYTES 6.4 % (2-11); NEUTROPHILS 76.9 % (40-80); PLATELET COUNT 294 10x3/uL (130-400); RBC 3.82 10x6/uL (4.00-5.40); RDW 14.4 % (11.5-14.5); WBC 12.4 10x3/uL (4.8-10.8)
--- NOTE | 2021-05-01 08:43 | NUR ---
PT AWAKE AND SITTING UP IN BED WITH AT SIDE. RATES PAIN AT 1/10 AND STATES THAT CENA MAKES HER SLEEPY. FUNDUS FIRM AT U/1 WITH NO CLOTS NOTED. BIKINI INCISION COVERED WITH WHITE BANDAGE THAT IS CLEAN AND DRY. RAYMUNDO TO BEDSIDE DRAIN WITH 200ML CLEAR URINE NOTED. SCD BILAT AND CONNECTED TO PUMP. LARGE CUP OF ICE REQUESTED. SIG OTHER AT BEDSIDE ALSO, CALL LIGHT IN REACH WITH SIDE RAILS UP X 2.
[2021-05-01 10:22] VITALS: BP 111/75
--- NOTE | 2021-05-01 10:57 | NUR ---
RAYMUNDO CARE PER THIS RN, UNDERPAD/TOWELS CHANGED WITH PT LIFTING HER BOTTOM. FUNDUS FIRM AT U/1 WITH SCANT BLEEDING NOTED, NO CLOTS WITH MASSAGE. 300ML CLEAR URINE NOTED TO UROMETER. CONTINUE TO RATE PAIN AT 1/10. IN CRIB AT BEDSIDE, SIG OTHER ALSO PRESENT. CALL LIGHT IN REACH.
--- NOTE | 2021-05-01 12:08 | NUR ---
NEW ORDERS FROM DR REAL, MAY ADVANCE PLAN OF CARE.
--- NOTE | 2021-05-01 12:28 | NUR ---
IV SALINE LOCKED, AND DILAUDID AT RISK PARAPROFESSIONAL DISCONTINUED, PT STATES HER UNDERSTANDING THAT PAIN MED WILL NEED TO BE ASKED FOR NOW. RAYMUNDO CATH REMOVED WITH CATH INTACT AND TOTAL OF 1100ML CLEAR URINE. SHE IS ABLE TO SIT UP ON SIDE OF BED WITH NO COMPLAINT OF NAUSEA OR DIZZINESS. UP TO BATHROOM AND VOIDED 200ML WITHOUT COMPLAINT. KATALINA CARE PER SELF, GOWN CHANGED, MESH BRIEFS ON WITH KATALINA PAD. ABLE TO GET SELF BACK IN BED AND POSITIONED FOR COMFORT. RATES PAIN AT 2/10 AT THIS TIME. INFANT IN CRIB AT BEDSIDE AND SIG OTHER PRESENT.
--- NOTE | 2021-05-01 15:45 | NUR ---
PT CALLS OUT ASKING FOR TOWELS FOR SHOWER. SHOWER SEAT AND TOWELS PLACED IN BATHROOM. INSTRUCTIONS GIVEN ON REMOVEAL OF ABD BANDAGE AND WILL CALL FOR NURSE IF ASSISTANCE IS NEEDED. SALINE LOCK REMOVED PER PT REQUEST, SHE UNDERSTANDS THAT IF NEEDED IV WILL BE RESTARTED. SIG OTHER STATES HE WILL BE IN ROOM WHILE SHE SHOWERS. INFANT IN NURSERY.
--- NOTE | 2021-05-01 16:45 | NUR ---
TRANSFERRED TO ROOM 1278, WHEELCHAIR OFFERED BUT SHE CHOOSES TO WALK. ORIENT TO ROOM WITHOUT ANY QUESTIONS. NURSERY NOTIFIED OF ROOM CHANGE.
--- NOTE | 2021-05-01 17:26 | NUR ---
PT SITTING UP IN BED. ASKING ABOUT . INFORMED PT THAT HAVING HEARING SCREEN DONE AT THIS TIME. PT DENIES NEEDS OR C/O.
--- NOTE | 2021-05-01 18:52 | NUR ---
BEDSIDE SHIFT REPORT RCVD FROM Beth GONZALEZ RN. PT SITTING UP IN BED WITH HOB 45 DEGREES, FEEDING INFANT AT THIS TIME. DENIES PAIN OR NEEDS. WILL CONTINUE TO MONITOR.
[2021-05-01 19:52] VITALS: BP 119/67
--- NOTE | 2021-05-01 19:52 | NUR ---
RN TO BEDSIDE. SHIFT ASSESSMENT COMPLETED AT THIS TIME. SEE FLOWSHEET. FF/U2, NO CLOTS. LOW TRANSVERSE INCISION WITH REJI C/D/I. PT HAS PERIPAD IN PLACE OVER INCISION TO KEEP IT DRY. PT DENIES PAIN OR NEEDS. ENCOURAGED TO CALL OUT BUCKLE FRAME SHAPER LIGHT WHEN PAIN MEDICATION IS DESIRED. UNDERSTANDING VERBALIZED. WILL CONTINUE TO MONITOR. BED LOW, WHEELS LOCKED, CALL LIGHT AND PHONE WITHIN REACH, SIDE RAILS UP X2.
--- NOTE | 2021-05-01 20:31 | NUR ---
PT RINGS CL REQUESTING ADDITIONAL BLANKETS. SAME PROVIDED. DENIES FURTHER NEEDS. WILL CONTINUE TO MONITOR PRN.
--- NOTE | 2021-05-01 22:24 | NUR ---
ROUNDS MADE. PT RATES PAIN 0/10. PT HAS SKIN TO SKIN. PT INQUIRES WHEN SHE SHOULD BE ABLE TO D/C HOME TOMORROW. ADVISED THAT WITH A C/S IT IS USUALLY [address] REAL WOULD DISCUSS D/C WITH HER WHEN HE ROUNDS TOMORROW. UNDERSTANDING VERBALIZED. NO FURTHER QUESTIONS OR CONCERNS VOICED AT THIS TIME.
--- NOTE | 2021-05-02 00:10 | NUR ---
ROUNDS MADE. PT DENIES PAIN OR NEEDS. WILL CONTINUE TO MONITOR PRN.
[2021-05-02 03:00] VITALS: BP 125/58
--- NOTE | 2021-05-02 03:05 | NUR ---
RN TO BEDSIDE. NBN NURSE IN ROOM ASSESSING . MOM SITTING UP IN BED WITH HOB 60 DEGREES. DENIES PAIN OR NEEDS. VSS. WILL CONTINUE TO MONITOR PRN.
--- NOTE | 2021-05-02 05:33 | NUR ---
ROUNDS MADE. PT SITTING UP IN BED WITH INFANT SKIN TO SKIN. DENIES PAIN OR NEEDS. NBN RN TO BEDSIDE AND TRANSPORTS INFANT TO NBN VIA OPEN CRIB FOR WEIGHT CHECK. PT ENCOURAGED TO CALL OUT FISH MACHINE FEEDER LIGHT IF PAIN MEDICATION IS NEEDED. UNDERSTANDING VERBALIZED.
--- NOTE | 2021-05-02 06:58 | NUR ---
THIS RN TO ROOM WITH DANA CAMPBELL FOR BEDSIDE SHIFT REPORT. PT RESTING IN BED TO RIGHT TILT, EYES CLOSED, AWAKENS NURSES ENTER ROOM FOR REPORT. DENIES ANY NEEDS AT THIS TIME. PT ENCOURAGED TO CONTINUE TO REST, LIGHTS REMAIN DIM IN ROOM. SRUx2, CL IN REACH.
[2021-05-02 08:34] VITALS: BP 122/75
--- NOTE | 2021-05-02 08:34 | NUR ---
SHIFT ASSESSMENT COMPLETED, VSS, SEE FLOWSHEET FOR DOC. LT INCISION C/D/I WITH REJI. FF, ML, U/2. SMALL RUBRA LOCHIA, NO CLOTS. PT RATING PAIN 3/10 AT THIS TIME, REQUESTING "BOTH PAIN MEDS" TO STAY AHEAD OF PAIN. PT ADMIN PRN PAIN MEDS, SEE EMAR FOR DOC. GENERALIZED EDEMA NOTED TO LE BILAT, NON-PITTING. POC DISCUSSED WITH PT. DENIES NEEDS AT THIS TIME. SRUx2, CL IN REACH.
--- NOTE | 2021-05-02 11:19 | NUR ---
THIS RN TO ROOM FOR PT CHECK. PT PROVIDED WITH APPLE JUICE AND ICE PER REQUEST. DENIES PAIN OR FURTHER NEEDS AT THIS TIME. SRUx2, CL IN REACH.
--- NOTE | 2021-05-02 13:45 | NUR ---
PT CALLS OUT FIBERGLASS LAMINATOR LIGHT FOR INCISION TO BE CHECKED. THIS RN TO ROOM. PT NOTED TO HAVE SCANT BRIGHT RED BLOOD COMING FROM STAPLE NOTED MIDLINE ON INCISION. STAPLE STILL WELL INTACT. INCISION MONITORED AND NO ACTIVE BLEEDING NOTED. PT REASSURED. PERIPAD PLACED OVER INCISION TRANVERSELY AND WILL CONT TO MONITOR INCISION FOR FURTHER BLEEDING. PT STATES SHE IS READY FOR DISCHARGE TO HOME WHEN POSSIBLE.
--- NOTE | 2021-05-02 14:08 | NUR ---
DR REAL PHONED WITH REPORT ON PT REQUEST FOR D/C TO HOME, DOING WELL, AND BEING DISCHARGED SHORTLY. ORDER RECEIVED FOR D/C TO HOME WITH STAPLE REMOVAL IN 1 WEEK. PT VERBALIZES YES SHE HAS MIRI ON 05/07/[address] [facility] WITH DR REAL.
[2021-05-02] MEDS ORDERED: IBUPROFEN600 MG PO (14:26)
[2021-05-02] MEDS ORDERED: HYDROCODON-ACE1 EA10 PO (14:26)
--- NOTE | 2021-05-02 14:58 | NUR ---
DISCHARGE TEACHING COMPLETED, PRESCRIPTION PROVIDED PROVIDED FROM DR REAL. PT VERBALIZES UNDERSTANDING AND DENIES QUESTIONS. SIGNS CHART COPIES. INSTRUCTED TO CALL WHEN INFANT BUCKLED INTO [facility]SEAT FOR W/C OFF UNIT FOR D/C TO HOME.
--- NOTE | 2021-05-02 15:20 | NUR ---
PT OFF UNIT VIA W/C TO PRIVATE VEHICLE FOR D/C TO HOME WITH .
--- NOTE | 2021-05-02 16:19 | MORECARE ---
CASE MANAGEMENT DISCHARGE SUMMARY PATIENT: MONTANA VELASQUEZ UNIT: [id number] ADM DATE: 04/30/21 AGE: 21 : 89 SEX: F ROOM/BED: D.[facility] AUTHOR: GREER,DOC PHYSICIAN: REFERRING PHYSICIAN: BLAIR REAL MD DATE OF SERVICE: 05/02/21 Case Management Discharge Planning Summary DCP REVIEW SUMMARY ANTICIPATED D/C DATE: EXPECTED LOS : 0 CASE STATUS: DCP Not started INITIAL REVIEW: 05/02/2021 INITIAL REVIEWER: Sameera Bergman FINAL DISCHARGE DISPOSITION: 01 : Home or Self Care (Routine Discharge) FINAL REVIEWER: Sameera Bergman FINAL REVIEW DATE: 05/02/2021 DCP Focus Questions & Answers QUESTION: ANSWER : PATIENT: MONTANA VELASQUEZ ENCOUNTER: [id number] MEDICAL RECORD#: [id number] ADMISSION DATE: 04/30/2021 DISCHARGE DATE: 05/02/2021 ATTENDING MD: BLAIR CUNNINGHAM : AGE: 21 MARITAL STATUS: M DC PLAN ID: [id number] FACILITY: [facility] PRINTED ON: 05/02/21 16:18 CT All edits/amendments must be made on the electronic document DICTATION DATE: 05/02/211617 RICE DRIER OPERATOR: TIM 05/02/211617 RPT#: [id number] DC DATE:05/02/21 STATUS: DIS IN [facility] [address] [place] [address] END OF REPORT
== END 2021-05-02 15:20 | disposition home or self-care (01) | DRG 785 ==
LOC: D.WS 04-30 08:55 → D.LD 04-30 08:55 → D.SDCHOLD 04-30 12:00 → D.WS 04-30 15:43 → D.LD 05-01 17:31
PROVIDERS: ADMIT Obstetrics & Gynecology; ATTEND Obstetrics & Gynecology
PROC: 10D00Z1 Extraction of Products of Conception, Low, Open Approach (ICD-10-PCS; principal; 2021-04-30)
PROC: 0UB70ZZ Excision of Bilateral Fallopian Tubes, Open Approach (ICD-10-PCS; 2021-04-30)
DX: O99.344 Other mental disorders complicating childbirth (principal); Z3A.39 39 weeks gestation of pregnancy; F32.9 Major depressive disorder, single episode, unspecified; Z37.0 Single live birth